=== PATIENT | male | born 1935 | race Caucasian/White ===

== ENCOUNTER → 2024-07-24 | Outpatient (CLI) | payer MEDICARE, SELFPAY ==
[2024-07-24 13:38] LABS: Thyroid Stimulating Hormone 1.56 uIU/mL (0.55-4.78); Vitamin B12 243 pg/mL (211-911)
== END | disposition home or self-care (01) ==
LOC: COPL 11:58
PROVIDERS: PCP Family Medicine; Referring Provider Psychiatry & Neurology Neurology; Visit Provider Psychiatry & Neurology Neurology
DX: R41.3 Other amnesia (principal); R42 Dizziness and giddiness
CPT/HCPCS: 36415; 82607; 84443